=== PATIENT | male | born 1985 ===

== ENCOUNTER 2023-10-19 22:24 | Emergency (ER) | payer SELFPAY ==
[2023-10-19 22:24] VITALS: BMI 23.3
[2023-10-19 22:25] VITALS: BP 138/75
[2023-10-20] MEDS: KEFLEX 500 MG PO (01:24)
--- NOTE | 2023-10-20 01:55 | ED.GENMED ---
History of Present Illness
General
Chief Complaint: Skin Surface Trauma
Source: patient
Exam Limitations: none
Time Seen by Provider: 10/20/23 00:09
Nursing documentation reviewed up to this point in time: agreed with
Travel History
Have you had any contact with someone who has COVID-19?: No
Do you have any symptoms of coronavirus? Fever > 100 degrees, chills, cough, shortness of breath, sore throat, loss of taste or smell, muscle aches, or headache?: No
History of Present Illness
History of Present Illness:
37-year-old male with no chronic medical issues presents for evaluation of a palm laceration. Patient was cleaning the kitchen table and accidentally stabbed his right palm with a knife. Sustained a puncture wound that was bleeding quite heavily.
He came to the emergency room for evaluation. He believes his tetanus is up-to-date�does not wish for tetanus booster. He denies any other injuries.
Review of Systems
Review of Systems
All Other Systems: ROS reviewed and negative except as documented in HPI and ROS
Skin: Reports other (Palm laceration)
Phy Exam
Physical Exam
Physical Exam:
General: Awake, alert, no acute distress
Head: Normocephalic, atraumatic
Eyes: Conjunctiva normal
Throat: Airway intact, handling secretions
Neck: Trachea midline
Lungs: Breathing comfortably not in distress
Heart: Regular rate
Neuro: Cranial nerves grossly intact, speech fluid; motor and sensory function intact radial, median, ulnar nerve distribution right hand
Skin: Patient has approximately 2 cm linear laceration on the right thenar eminence palmar aspect; he has a slow steady oozing of blood but no pulsatile bleeding; he has a large hematoma of the thenar eminence
Extremities: Palpable radial and ulnar pulses right hand and brisk capillary refill in all digits of the right hand including the thumb
Scores
Heart Failure Risk
Heart Failure Risk Score: Not Applicable
Heart Score for Chest Pain Patients
STEMI patient?: Not applicable
Withdrawal Assessment of Alcohol
Withdrawal Assessment Completed?: Not applicable
Course
Orders/Labs/Results
Orders:
Orders
10/20/23 01:17
Cephalexin Monohydrate [Keflex] 500 mg PO NOW STA
Vital Signs
Initial and Last Documented VS:
Initial Vital Signs
Temp Pulse Resp BP Pulse Ox
36.4 C 66 18 138/75 97
10/19/23 22:25 10/19/23 22:25 10/19/23 22:25 10/19/23 22:25 10/19/23 22:25
Last Documented Vital Signs
Temp Pulse Resp BP Pulse Ox
36.4 C 66 18 138/75 97
10/19/23 22:25 10/19/23 22:25 10/19/23 22:25 10/19/23 22:25 10/19/23 22:25
Procedures
Laceration Closure
Right Hand:
Status of Wound: clean
Size of Wound in cm: 2
Description of Wound Edges: sharp
Preparation: cleaned with saline and cleaned with Betadine
Anesthesia: 1% Lidocaine
Revision/Debridement: routine- no revision
Wound exploration: no tendon involvement
Type of Closure: single layer closure
Skin Closure Material: 4-0 nylon
Number of sutures: 3
MDM/Problems Addressed
Differential Diagnosis Includes:
Laceration
MDM/Problems Addressed:
37-year-old male presents for evaluation of a laceration to the right palm�has a laceration on the thenar eminence with a large hematoma in the region and some slow steady bleeding but no pulsatile bleeding. Vitals reviewed and normal. Exam as
above�no clear signs of nerve injury with intact motor and sensory function radial, median, ulnar nerve distribution. Suspect likely venous injury�no pulsatile bleeding although there was a large amount hematoma in the area. Wound was sutured and
observed�no expansion of hematoma after suturing. Applied antibiotic ointment. Discussed with orthopedist, will start on prophylactic antibiotic as well. Spoke to the patient about return precautions and timeline for suture removal. All
questions answered.
*Pulse Oximetry
Patient hypoxic: no
*Critical Care Note
Total Time (30-74mins, 75-104mins- exclusive of procedures): Not Applicable
Data Reviewed
Source: patient
Patient Management
Discussion with other providers: Alumni Relations Coordinator (Discussed with orthopedics)
ED Attending Note
-
Portions of this chart may have been created with voice recognition software.� Occasional wrong word or��sound alike� substitutions may have occurred due to the inherent limitations of voice recognition software.
Discharge Plan
Departure
Patient Disposition: Home (Routine Discharge)
Date of Disposition: 10/20/23
Time of Disposition: 01:50
Patient with high blood pressure during this ER visit?: No
Discharge Problem:
Laceration of left palm
Instructions: Laceration Repair With Stitches (DC)
Prescriptions:
New
cephalexin 500 mg capsule
500 mg PO TID 7 Days Qty: 21 0RF
Referrals:
NONE,* [Family Provider] -
Activity Restrictions/Additional Instructions:
You were seen in the emergency room for a laceration to your palm. In the emergency room you had your wound repaired with stitches. You must have the stitches removed in 7 days�you can either return here to the emergency room, follow-up with your
primary doctor, or follow-up in urgent care to have the stitches removed. You have a large hematoma which we observed here in the emergency room. If you should notice that this is increasing in size or if you are having worsening pain you should
come back to have this reassessed. If you notice any numbness or tingling in your hand you should come to the emergency room for reassessment. If you have any redness, drainage, fevers or any other signs of infection you should return
immediately�you were started on a prophylactic antibiotic to prevent infection.
Thank you for visiting the Emergency Department at [facility].
1. Please schedule a follow up appointment as directed. Call first thing tomorrow morning to make an appointment.
2. If indicated, please take your medications as instructed and indicated on discharge paperwork.
3. If any of your symptoms do not improve, or persist, or become more severe within 6-12 hours, please return to the emergency department for further care.
4. Please return to the emergency department if you develop a headache, neck pain/stiffness, fever greater than 100.4F, chest pain, shortness of breath, persistent nausea, vomiting, slurred speech, difficulty walking, numbness/tingling, weakness,
signs of infection or any other symptoms that are worrisome to you.
Please call [phone] if you have any questions.
Interventions
Interventions:
ED-Skin Assessment Last Done: 10/20/23 00:10
Discharge Date and Time
Print Language: WOLOF
== END 2023-10-20 02:05 | disposition home or self-care (01) ==
LOC: EMR 22:24
PROVIDERS: EMERGENCY PHYSICIAN Emergency Medicine
DX: S61.412A Laceration without foreign body of left hand, initial encounter (principal); W26.0XXA Contact with knife, initial encounter
CPT/HCPCS: 99283; 12001